=== PATIENT | male | born 1985 | race Caucasian/White ===

== ENCOUNTER 2017-03-17 22:37 | Emergency (ER) | payer BC ==
[2017-03-17] MEDS ORDERED: DOXYCYCLINE HYCLATE 100 MG TABLET PO ONE (23:49)
--- NOTE | 2017-03-17 23:49 | ERNOTE ---
Medical Problem HPI - Narrative Date of Service: 03/17/17 - General Chief Complaint: Flu Symptoms Time Seen by Provider: 03/17/17 22:53 Source: patient Exam Limitations: no limitations - Immun/Allergies/Home Medications Immunizations: IMMUNIZATION HX Immunizations Up to Date Yes History of Influenza Vaccine No Hx Pneumococcal Vaccination No Allergies/Adverse Reactions: Allergies No Known Drug Allergies Allergy (Verified 03/17/17 22:46) Home Medications: HOME MEDICATIONS Doxycycline Hyclate [Vibratab] 100 mg PO BID #20 tab 03/17/17 [Last Taken Unknown] Ibuprofen 200 mg PO PRN PRN 03/17/17 [Last Taken 03/17/17 21:45 800 mg] - History of Present History Narrative: patient has been sick for one week with fever and chills with cough Timing: constant, getting worse Modifying Factors - (Improves): Present: other - nothing Modifying Factors - (Worsens): Present: other - nothing Review of Systems - Narrative Narrative: cough fever - Review of Systems Constitutional: Present: See HPI, fever, chills, weakness, fatigue, malaise EYE: Present: no symptoms reported ENT: Present: no symptoms reported Respiratory: Present: See HPI, shortness of breath, cough Cardiology: Present: no symptoms reported Gastrointestinal/Abdominal: Present: no symptoms reported Genitourinary: Present: no symptoms reported Musculoskeletal: Present: no symptoms reported Skin: Present: no symptoms reported Neurological: Present: no symptoms reported Endocrine: Present: no symptoms reported Hematologic/Lymphatic: Present: no symptoms reported Psych: Present: no symptoms reported All Other Systems: All systems neg except as marked - Narrative Narrative: unremarkable - Patient's Past Medical History Patient History - Medical: No pertinent hx Patient History - Cardiac/Respiratory: No pertinent hx Patient History - Cancer: No Hx of Cancer Patient History - Surgical Procedures: Other Patient History - Other: None - Family History Family History:: no untoward family reactions to anesthesia, no familial bleeding tendencies, no family history of clotting disorders, no family history of premature - Social History Living Situations: home Abuse History: No History of abuse Psych History: No pertinent hx Smoking Status: Current every day smoker Alcohol Use: rarely Drug Use: none - Immunizations Immunizations Up to Date: Yes Hx Pneumococcal Vaccination: No History of Influenza Vaccine: No Physical Exam - Physical Exam Narrative: patient appears sick General Appearance: Present: wd/wn, alert, no apparent distress Head Exam: Present: normal inspection, no evidence of injury Eye Exam: Normal inspection: bilateral, PERRL: bilateral, EOMI: bilateral Ears, Nose, Throat: Present: normal ENT inspection Neck: Present: normal inspection, nontender Respiratory: Present: decreased breath sounds Cardiovascular/Chest: Present: regular rate, rhythm, no murmur, normal peripheral pulses Peripheral Pulses: N=norm/S=strong/W=weak/B=bound/A=absent: Carotid (R): Normal , Carotid (L): Normal, Radial (R): Normal, Radial (L): Normal, Femoral (R): Normal, Femoral (L): Normal, Dorsalis-pedis (R): Normal, Dorsalis-pedis (L): Normal Gastrointestinal/Abdominal: Present: normal bowel sounds, nontender, nondistended, soft, no organomegaly Back Exam: Present: normal inspection, normal range of motion, no CVA tenderness , no vertebral tenderness Extremity Exam: Present: normal inspection, non-tender, normal range of motion, no edema Neurological Exam: Present: alert, oriented, normal mood/affect, no motor/ sensory deficits DTR: N=norm/NB=norm/brisk/A=abs/DD=dull/dimin/HC=hyperactive: Bicep (R): Normal , Bicep (L): Normal, Tricep (R): Normal, Tricep (L): Normal, Knee (R): Normal, Knee (L): Normal, Ankle (R): Normal, Ankle (L): Normal Skin Exam: Present: normal color, warm/dry ED Progress - Date and Time Seen: Date and Time: 03/17/17 23:44 unchanged - Results and Orders Patient's Lab Results:: I have reviewed the patient's lab results. - Vital Signs Patient's Vital Signs:: I have reviewed the patient's vital signs. Vital Signs: Vital Signs 03/17/17 03/17/17 22:43 23:28 Temperature 37.1 C 37.9 C H Pulse Rate 121 H 107 H Respiratory 18 18 Rate Blood Pressure 118/72 99/65 O2 Sat by Pulse 96 96 Oximetry - X-Ray X-Ray #1 X-Ray: chest - no acute process Interpretation: Interp. by me - Progress/Reassessment Chief Complaint: Flu Symptoms Progress:: Unchanged - Transfer of Care Expected Disposition: Discharge Plan - Plan Plan: to be dismissed Departure Clinical Impression: Bronchitis - Departure Disposition: Home Follow Up Needed Condition: Fair Prescriptions: Doxycycline Hyclate [Vibratab] 100 mg PO BID #20 tab
[2017-03-17] MEDS ORDERED: DOXYCYCLINE HYCLATE 100 MG TABLET ONE (23:52)
[2017-03-17 23:58] VITALS: BP 109/73
== END 2017-03-18 00:01 | disposition home or self-care (01) ==
LOC: ER 22:37
DX: J40 Bronchitis, not specified as acute or chronic (principal); F17.200 Nicotine dependence, unspecified, uncomplicated
CPT/HCPCS: 71020; 71046; 87081; 87400; 87430; 87449; 99284